=== PATIENT | male | born 1980 | race Caucasian/White ===

== ENCOUNTER 2016-08-19 19:28 | Emergency (ER) | payer OTHER ==
[2016-08-19 19:46] LABS: URINE APPEARANCE CLEAR; URINE BILIRUBIN NEGATIVE (NEGATIVE); URINE BLOOD TRACE-I (NEGATIVE); URINE COLOR YELLOW; URINE GLUCOSE (UA) NEGATIVE (NEGATIVE); URINE KETONE NEGATIVE (NEGATIVE); URINE LEUKOCYTE ESTERASE NEGATIVE (NEGATIVE); URINE NITRITE NEGATIVE (NEGATIVE); URINE PROTEIN NEGATIVE (NEGATIVE); URINE UROBILINOGEN 0.2 E.U./dL (0.20 - 1.00)
[2016-08-19 19:55] LABS: URINE AMORPHOUS SEDIMENT 1+; URINE EPITHELIAL CELLS 0 - 2 (FEW); URINE RBC 0 - 2 (NONE SEEN); URINE WBC 0 - 2 (0-2/hpf)
[2016-08-19] MEDS: ONDANSETRON HCL IV 4 MG/2 ML VIAL IV ONE (20:14)
[2016-08-19] MEDS: HYDROMORPHONE HCL 1 MG/ML CPJ IVP ONE ×2 (20:14→23:07)
[2016-08-19] MEDS: 0.9 % SODIUM CHLORIDE 1,000 ML BAG IV ONE (20:14)
[2016-08-19 20:20] LABS: BASO % 0.6 % (0-6); EOS % 1.7 % (0-6); GRAN % 52.3 % (47-80); HEMATOCRIT 45.4 % (42.0-52.0); HEMOGLOBIN 14.9 gm/dl (14.0-18.0); LYMPH % 36.3 % (16-45); MEAN CELL VOLUME 85.8 fl (81-97); MEAN CORPUSCULAR HEMOGLOBIN 28.2 pg (27-33); MEAN CORPUSCULAR HGB CONC 32.8 g/dl (32-36); MEAN PLATELET VOLUME 9.6 fl (7.4-10.4); MONO % 9.1 % (0-9); PLATELET COUNT 245 K/uL (130-400); RED BLOOD COUNT 5.29 M/uL (4.40-5.70); WHITE BLOOD COUNT W/O DIFF 7.1 K/uL (4.2-12.2)
[2016-08-19 20:32] LABS: ALBUMIN 5.2 gm/dL (3.5-5.0); ALKALINE PHOSPHATASE 109 U/L (38-126); ALT/SGPT 61 U/L (21-72); AMYLASE 53 U/L (30-110); ANION GAP 12.2 (7-16); AST/SGOT 30 U/L (17-59); BILIRUBIN,TOTAL 0.52 mg/dL (0.2-1.3); BLOOD UREA NITROGEN 15 mg/dL (9-20); CARBON DIOXIDE 27.8 mmol/L (22-30); CREATININE 1.1 mg/dL (0.66-1.25); EST GLOMERULAR FILTRATION RATE > 60 ml/min; GLUCOSE,RANDOM 94 mg/dL (70-110); LIPASE 58 U/L (23-300); TOTAL PROTEIN 7.4 gm/dL (6.3-8.2)
[2016-08-19 20:44] LABS: TROPONIN I < 0.012 ng/mL (0.00-0.034)
--- NOTE | 2016-08-19 21:08 | Emergency Department Record ---
History of Present Illness - General Chief Complaint: Abdominal Pain Stated Complaint: STOMACH PAIN Time Seen by Provider: 08/19/16 19:41 Source: Patient Mode of Arrival: Ambulatory Limitations: No limitations - History of Present Illness Initial Comments: pt has been having ruq and rlq ap for 2 days. no n/v/c/d. resting makes it better, movement makes it worse Complaint: Abdominal pain Onset/Timin -: Days(s) Location: Epigastric, RUQ, RLQ Migration to: RUQ, RLQ Quality: Aching, Dull, Sharp Consistency: Constant Improves With: Nothing Worsens With: Eating Associated Symptoms: Chills, Fever - Related Data Previous Rx's Medication Instructions Recorded Hydrocodone/Acetaminophen [[place] 1 tab PO Q6H PRN #7 tab 08/19/16 5mg/325mg] Allergies Allergy/AdvReac Type Severity Reaction Status Date / Time metoclopramide HCl AdvReac HYPERSENSIT Verified 08/19/16 19:55 [From [facility]] [address] Travel Screening - Travel/Exposure Within Last 30 Days Have you traveled within the last 30 days?: No - Travel/Exposure Within Last Year Have you traveled outside the [place] in the last year?: No - Additonal Travel Details Have you been exposed to anyone with a communicable illness?: No - Travel Symptoms Symptom Screening: None Review of Systems Reviewed: No additional complaints except as noted below Constitutional: Reports: As per HPI. Denies: Chills, Fever, Malaise, Night sweats, Weakness, Weight change Eyes: Reports: As per HPI. Denies: Eye discharge, Eye pain, Photophobia, Vision change ENT: Reports: As per HPI. Denies: Congestion, Dental pain, Ear pain, Epistaxis , Hearing loss, Throat pain Respiratory: Reports: As per HPI. Denies: Cough, Dyspnea, Hemoptysis, Stridor, Wheezes Cardiovascular: Reports: As per HPI. Denies: Arrhythmia, Chest pain, Dyspnea on exertion, Edema, Murmurs, Orthopnea, Palpitations, Paroxysmal nocturnal dyspnea, Rheumatic Fever, Syncope Endocrine: Reports: As per HPI. Denies: Fatigue, Heat or cold intolerance, Polydipsia, Polyuria Gastrointestinal: Reports: As per HPI. Denies: Abdominal pain, Constipation, Diarrhea, Hematemesis, Hematochezia, Melena, Nausea, Vomiting Genitourinary: Reports: As per HPI. Denies: Dysuria, Frequency, Hematuria, Incontinence, Retention, Testicular pain, Testicular mass, Urgency Musculoskeletal: Reports: As per HPI. Denies: Arthralgia, Back pain, Gout, Joint swelling, Myalgia, Neck pain Skin: Reports: As per HPI. Denies: Bruising, Change in color, Change in hair/ nails, Lesions, Pruritus, Rash Neurological: Reports: As per HPI. Denies: Abnormal gait, Confusion, Headache, Numbness, Paresthesias, Seizure, Tingling, Tremors, Vertigo, Weakness Psychiatric: Reports: As per HPI. Denies: Anxiety, Auditory hallucinations, Depression, Homicidal thoughts, Suicidal thoughts, Visual hallucinations Hematological/Lymphatic: Reports: As per HPI. Denies: Anemia, Blood Clots, Easy bleeding, Easy bruising, Swollen glands Past Medical History - SOCIAL HISTORY Smoking Status: Never smoker Alcohol Use: Occassional Drug Use: None - RESPIRATORY Hx Respiratory Disorders: No - CARDIOVASCULAR Hx Cardio Disorders: No - NEURO Hx Neuro Disorders: No - GI Hx GI Disorders: No - Hx Genitourinary Disorders: No - ENDOCRINE Hx Endocrine Disorders: No - MUSCULOSKELETAL Hx Musculoskeletal Disorders: No - PSYCH Hx Psych Problems: No - HEMATOLOGY/ONCOLOGY Hx Hematology/Oncology Disorders: No Family Medical History Any Significant Family History?: No Hx Cancer: Mother, Brother/Sister Physical Exam - General General Appearance: Alert, Oriented x3, Cooperative, Mild distress - Head Head exam: Normal inspection - Eye Eye exam: Normal appearance, PERRL, EOMI Pupils: Normal accommodation - ENT ENT exam: Normal exam, Mucous membranes moist, Normal external ear exam, Normal orophraynx Ear exam: Normal external inspection. negative: External canal tenderness Nasal Exam: Normal inspection. negative: Discharge, Sinus tenderness Mouth exam: Normal external inspection, Tongue normal Teeth exam: Normal inspection. negative: Dental caries Throat exam: Normal inspection. negative: Tonsillar erythema, Tonsillar exudate - Neck Neck exam: Normal inspection, Full ROM. negative: Tenderness - Respiratory Respiratory exam: Normal lung sounds bilaterally. negative: Respiratory distress - Cardiovascular Cardiovascular Exam: Regular rate, Normal rhythm, Normal heart sounds - GI/Abdominal GI/Abdominal exam: Soft, Normal bowel sounds, Tenderness (rlq) - Rectal Rectal exam: Deferred - exam: Deferred - Extremities Extremities exam: Normal inspection, Full ROM, Normal capillary refill. negative: Tenderness - Back Back exam: Reports: Normal inspection, Full ROM. Denies: Muscle spasm, Rash noted, Tenderness - Neurological Neurological exam: Alert, CN II-XII intact, Normal gait, Oriented X3 - Psychiatric Psychiatric exam: Normal affect, Normal mood - Skin Skin exam: Dry, Intact, Normal color, Warm Course Vital Signs 08/19/16 19:29 Temperature 97.7 F Pulse Rate 62 Respiratory 16 Rate Blood Pressure 132/74 Pulse Ox 99 - Reevaluation(s) Reevaluation #1: 08/19/16 23:05 pt feels better Medical Decision Making - Management Options MDM Management: Additional Work-up Planned (e.g. ADM/Transfer/OP Study) - Data Complexity MDM Data: Labs Ordered and/or Reviewed, X-Ray Ordered and/or Reviewed - Lab Data Result diagrams: 08/19/16 19:18 08/19/16 19:18 Lab Results 08/19/16 08/19/16 08/19/16 Range/Units 19:18 19:18 19:35 WBC 7.1 (4.2-12.2) K/uL RBC 5.29 (4.40-5.70) M/uL Hgb 14.9 (14.0-18.0) gm/dl Hct 45.4 (42.0-52.0) % MCV 85.8 (81-97) fl MCH 28.2 (27-33) pg MCHC 32.8 (32-36) g/dl RDW 14.0 (11.5-14.5) % Plt Count 245 (130-400) K/uL MPV 9.6 (7.4-10.4) fl Gran % 52.3 (47-80) % Lymphocytes % 36.3 (16-45) % Monocytes % 9.1 H (0-9) % Eosinophils % 1.7 (0-6) % Basophils % 0.6 (0-6) % Sodium 141 (136-145) mmol/L Potassium 4.1 (3.5-5.1) mmol/L Chloride 101 (98-107) mmol/L Carbon Dioxide 27.8 (22-30) mmol/L Anion Gap 12.2 (7-16) BUN 15 (9-20) mg/dL Creatinine 1.1 (0.66-1.25) mg/dL Estimated GFR > 60 ml/min Random Glucose 94 (70-110) mg/dL Calcium 9.4 (8.5-10.1) mg/dL Total Bilirubin 0.52 (0.2-1.3) mg/dL Direct Bilirubin 0.0 (0-0.3) mg/dL AST 30 (17-59) U/L ALT 61 (21-72) U/L Alkaline Phosphatase 109 (38-126) U/L Troponin I < 0.012 (0.00-0.034) ng/mL Total Protein 7.4 (6.3-8.2) gm/dL Albumin 5.2 H (3.5-5.0) gm/dL Amylase 53 (30-110) U/L Lipase 58 (23-300) U/L Urine Color Yellow Urine Appearance Clear Urine pH 6.5 (5.0-8.0) Ur Specific [place] 1.015 (1.002-1.030) Urine Protein Negative (NEGATIVE) Urine Glucose (UA) Negative (NEGATIVE) Urine Ketones Negative (NEGATIVE) Urine Blood Trace-i (NEGATIVE) Urine Nitrite Negative (NEGATIVE) Urine Bilirubin Negative (NEGATIVE) Urine Urobilinogen 0.2 (0.20 - 1.00) E.U./dL Ur Leukocyte Esterase Negative (NEGATIVE) Urine RBC 0 - 2 (NONE SEEN) Urine WBC 0 - 2 (0-2/hpf) Ur Epithelial Cells 0 - 2 (FEW) Amorphous Sediment 1+ - Radiology Data Radiology results: Report reviewed, Image reviewed Disposition Disposition: Discharge Clinical Impression: Abdominal pain Qualifiers: Abdominal location: right upper quadrant Qualified Code(s): R10.11 - Right upper quadrant pain Disposition: Home, Self-Care Condition: (1) Good Instructions: Abdominal Pain (ED) Additional Instructions: follow up with family doctor. return sooner if worse. have ultraspound of gallbladder if symptoms continue. recheck in 1 day if right lower quadrant pain continues. Prescriptions: Hydrocodone/Acetaminophen [[place] 5mg/325mg] 1 tab PO Q6H PRN #7 tab PRN Reason: Pain - General Forms: Patient Portal Access
[2016-08-19] MEDS: 0.9 % SODIUM CHLORIDE 1000ML 1,000 ML IV ONE (21:10)
[2016-08-19] MEDS: KETOROLAC 30 MG/ML VIAL IVP ONE (21:39)
--- NOTE | 2016-08-24 14:22 | CT SCAN REPORT ---
EXAM: CT SCAN OF THE ABDOMEN AND PELVIS HISTORY: PATIENT HAS RIGHT SIDED ABDOMINAL PAIN. TECHNIQUE: Serial axial CT scan of the abdomen and pelvis was performed at 3.75 mm intervals from the dome of the diaphragm down to the pubic symphysis following the intravenous administration of 100 ml of Omnipaque 300. Oral contrast was also administered. No comparison studies are available. FINDINGS: The lung windows of the lung bases demonstrate no CT evidence of a focal infiltrate or pleural effusion. The visualized heart size and contour is within normal limits. The liver, spleen, pancreas, bilateral adrenal glands, and gallbladder appear unremarkable. There is no CT evidence of hydronephrosis or hydroureter. No renal or ureteral calculi are noted. The contour, caliber and flow within the abdominal aorta is within normal limits. There is no CT evidence of retroperitoneal, pelvic, or inguinal lymphadenopathy. The bowel gas pattern is nonspecific and nonobstructive. There is no CT evidence of free intraperitoneal fluid or free intraperitoneal air. The appendix is clearly visualized and there is no CT evidence of appendicitis. The urinary bladder and prostate appear unremarkable. Bone windows demonstrate no CT evidence of a fracture or dislocation of the visualized osseous structures in the abdomen and pelvis. Lucent lesion within the left aspect of the T12 vertebral body may represent enchondroma. If there is further clinical concern then a bone scan can be obtained for further evaluation. IMPRESSION: NO CT EVIDENCE OF AN ACUTE INTRAABDOMINAL PROCESS. JOB NUMBER: [id number] MTDD
== END 2016-08-19 23:26 | disposition home or self-care (01) ==
LOC: ER 19:28
DX: R10.11 Right upper quadrant pain (principal)
CPT/HCPCS: 99284 ×2; 96376; 96374; 96375; 82150; 83690; 85025; 80076; 84484; 80048; 81001; 74177; Q9967; J1885; J2405; J1170; J7030

== ENCOUNTER 2019-03-29 15:14 | Observation (INO) | payer BC, OTHER ==
--- NOTE | 2019-03-29 15:32 | Emergency Department Record ---
History of Present Illness - General Chief Complaint: Chest Pain Stated Complaint: CHEST PAIN Time Seen by Provider: 03/29/19 15:18 Source: Patient Mode of Arrival: Ambulatory Limitations: No limitations - History of Present Illness Initial Comments: The patient is here due to waking up this AM with CP. The onset was 7-8 hours ago and he describes it as a retrosternal chest burning that feels like heartburn. He has had some dizziness and nausea with it but no sweating, PRESLEY, or SOB. The patient states eating and drinking do not affect the pain and he denies any worsening with exertion. The patient denies any hx of CP with exertion and he has no cardiac risk factors. MD Complaint: Chest pain Onset/Timin -: Hour(s) Onset: During rest Pain Location: Substernal Pain Radiation: None Severity: Mild Severity scale (1-10): 4 Quality: Other Consistency: Constant Improves With: Nothing Worsens With: Nothing Treatments Prior to Arrival: None - Related Data Home Medications Medication Instructions Recorded Confirmed Last Taken No Home Med [NO HOME MEDS] 03/29/19 03/29/19 Unknown Allergies Allergy/AdvReac Type Severity Reaction Status Date / Time metoclopramide HCl AdvReac HYPERSENSIT Verified 03/29/19 15:22 [From [employer]] [email or web address] Travel Screening - Travel/Exposure Within Last 30 Days Have you traveled within the last 30 days?: No Review of Systems Constitutional: Denies: Chills, Fever Eyes: Denies: Eye discharge ENT: Denies: Congestion Respiratory: Denies: Cough, Dyspnea Cardiovascular: Reports: Chest pain Endocrine: Denies: Fatigue Gastrointestinal: Reports: Nausea Genitourinary: Denies: Dysuria Musculoskeletal: Denies: Arthralgia Skin: Denies: Bruising Past Medical History - SOCIAL HISTORY Smoking Status: Never smoker Alcohol Use: None Drug Use: None - RESPIRATORY Hx Respiratory Disorders: No - CARDIOVASCULAR Hx Cardio Disorders: No - NEURO Hx Neuro Disorders: No - GI Hx GI Disorders: No - Hx Genitourinary Disorders: No - ENDOCRINE Hx Endocrine Disorders: No - MUSCULOSKELETAL Hx Musculoskeletal Disorders: No - PSYCH Hx Psych Problems: No - HEMATOLOGY/ONCOLOGY Hx Hematology/Oncology Disorders: No Family Medical History Any Significant Family History?: Yes Hx Cancer: Mother, Brother/Sister Physical Exam - General General Appearance: Alert, Oriented x3, Cooperative, No acute distress - Head Head exam: Atraumatic, Normocephalic, Normal inspection - Eye Eye exam: Normal appearance, PERRL - ENT Throat exam: Normal inspection. negative: Tonsillar erythema, Tonsillar exudate - Neck Neck exam: Normal inspection, Full ROM. negative: Tenderness - Respiratory Respiratory exam: Normal lung sounds bilaterally. negative: Chest wall tenderness, Rales, Respiratory distress, Rhonchi - Cardiovascular Cardiovascular Exam: Regular rate, Normal rhythm, Normal heart sounds. negative: Diastolic murmur, Systolic murmur - GI/Abdominal GI/Abdominal exam: Soft, Normal bowel sounds. negative: Tenderness - Extremities Extremities exam: Normal inspection, Full ROM, Normal capillary refill. negative: Calf tenderness, Pedal edema, Tenderness - Neurological Neurological exam: Alert, Normal gait. negative: Abnormal gait, Motor sensory deficit Course Vital Signs 03/29/19 15:19 Temperature 98.5 F Pulse Rate 90 Respiratory 20 Rate Blood Pressure 137/78 Pulse Ox 99 - Reevaluation(s) Reevaluation #1: The patient is doing a lot better at this time. His Chest burning has completely resolved and he has no nausea, vomiting, or any trouble breathing. I explained to him that we will recheck a Trop at 18:00 and treat accordingly. He did vomit after the GI meds and feels the vomiting is what helped him the most. 03/29/19 17:39 Reevaluation #2: The patient now has some mild upper abdominal pain and states he feels like he did prior to getting his GB removed. On exam he does have mild epigastric tenderness. The patient denies any chest discomfort or burning or any PRESLEY or SOB. 2nd EKG 18:04 NSR at 78, neg ST-T changes. Normal EKG. Possible borderline short IA interval. 03/29/19 18:15 Reevaluation #3: The patient now states his nausea and dizziness is worsening with standing. He denies any pain or discomfort or chest burning and he has normal vitals. The patient's 2nd EKG is normal along with his 2nd set of cardiac enzymes. Due to the extent of his nausea and dizziness I do feel the need to observe the patient in the hospital overnight. We will keep him NPO and treat with H2 blockers and IVF. I did discuss the case with Rylee ([employer]) and she will admit the patient overnight for Dr. Pal. We will recheck cardiac enzymes and lab work in the AM. 03/29/19 19:14 Medical Decision Making - Data Complexity MDM Data: Labs Ordered and/or Reviewed, X-Ray Ordered and/or Reviewed, EKG Ordered and/or Reviewed - Lab Data Result diagrams: 03/29/19 15:40 03/29/19 15:40 - EKG Data -: EKG Interpreted by Me EKG: No Acute Changes, Normal EKG - Radiology Data Radiology results: Report reviewed (CXR: neg. ) Disposition Disposition: Admit Clinical Impression: Chest pain, atypical Disposition: Still a Patient at [facility] Decision to Admit: Admit from ER Decision to Admit Date: 03/29/19 Decision to Admit Time: 19:21 Accepting Physician: Demarco Time Discussed w/Accepting Physician: 19:21 Condition: (2) Stable Instructions: Chest Pain (ED) Forms: Patient Portal Access Time of Disposition: 19:21 Quality - Quality Measures Quality Measures: N/A - Blood Pressure Screening View Details: Yes Does Patient Have Any of the Following: No Blood Pressure Classification: Pre-Hypertensive BP Reading Systolic Measurement: 137 Diastolic Measurement: 78 Screening for High Blood Pressure: < Pre-Hypertensive BP, F/U Documented > [[id number]] Pre-Hypertensive Follow-up Interventions: Referral to alternative/primary care provider.
[2019-03-29] MEDS ORDERED: MAGNESIUM HYDROXIDE/AL HYDROX 30 ML, LIDOCAINE VISC 2% 15ML 15 ML PO ONE ×2 (15:33)
[2019-03-29] MEDS ORDERED: ONDANSETRON HCL IV 4 MG/2 ML VIAL IVP ONE (15:41)
[2019-03-29 15:52] LABS: ABSOLUTE NEUTROPHIL COUNT 6.36; BASO % 0.1 % (0-6); EOS % 0.9 % (0-6); HEMATOCRIT 46.4 % (42.0-52.0); HEMOGLOBIN 15.6 gm/dl (14.0-18.0); LYMPH % 6.7 % (16-45); MEAN CELL VOLUME 83.8 fl (81-97); MEAN CORPUSCULAR HEMOGLOBIN 28.2 pg (27-33); MEAN CORPUSCULAR HGB CONC 33.6 g/dl (32-36); MEAN PLATELET VOLUME 9.6 fl (7.4-10.4); PLATELET COUNT 232 K/uL (130-400); RED BLOOD COUNT 5.54 M/uL (4.40-5.70); WHITE BLOOD COUNT W/O DIFF 7.5 K/uL (4.2-12.2)
[2019-03-29] MEDS ORDERED: SUCRALFATE 1 G/10 ML UD PO ONE (15:56)
[2019-03-29 15:57] LABS: BLOOD UREA NITROGEN 21 mg/dL (6-20); CREATININE 0.8 mg/dL (0.7-1.2); EST GLOMERULAR FILTRATION RATE > 60 mL/min
[2019-03-29 15:58] LABS: TOTAL PROTEIN 7.1 g/dL (6.6-8.7)
[2019-03-29 15:59] LABS: GLUCOSE,RANDOM 109 mg/dL (74-109)
[2019-03-29 16:02] LABS: ALB/GLOB RATIO 1.8 (1.1-1.8); ALBUMIN 4.6 g/dL (4.0-5.0); ALKALINE PHOSPHATASE 120 U/L (40-129); ALT/SGPT 28 U/L (<41); AST/SGOT 23 U/L (10.0-50.0); CREATINE PHOSPHOKINASE 429 U/L (39-308)
[2019-03-29] MEDS ORDERED: DIPHENHYDRAMINE HCL 50 MG/ML VIAL IVP ONE (16:40)
[2019-03-29] MEDS ORDERED: PROMETHAZINE HCL 12.5 MG in 0.9 % SODIUM CHLORIDE 100ML 100 ML IVPB ONE (16:40)
[2019-03-29] MEDS ORDERED: METOCLOPRAMIDE HCL 10 MG/2 ML VIAL IVP ONE (16:40)
[2019-03-29] MEDS ORDERED: PANTOPRAZOLE SODIUM IV 40 MG VIAL IVP ONE (19:14)
[2019-03-29] MEDS ORDERED: ONDANSETRON HCL IV 4 MG/2 ML VIAL IVP PRN (20:04)
[2019-03-29] MEDS ORDERED: 0.9 % SODIUM CHLORIDE 1000ML 1,000 ML IV PRN (20:04)
[2019-03-29] MEDS ORDERED: PROMETHAZINE HCL 12.5 MG in 0.9 % SODIUM CHLORIDE 100ML 100 ML IVPB PRN (20:04)
[2019-03-30 07:02] LABS: ABSOLUTE NEUTROPHIL COUNT 4.26; HEMATOCRIT 43.6 % (42.0-52.0); HEMOGLOBIN 14.4 gm/dl (14.0-18.0); MEAN CELL VOLUME 84.7 fl (81-97); MEAN PLATELET VOLUME 9.6 fl (7.4-10.4); PLATELET COUNT 210 K/uL (130-400); RED BLOOD COUNT 5.15 M/uL (4.40-5.70); RED CELL DISTRIBUTION WIDTH 14.2 % (11.5-14.5); WHITE BLOOD COUNT W/O DIFF 5.1 K/uL (4.2-12.2)
[2019-03-30 07:21] LABS: ALB/GLOB RATIO 1.8 (1.1-1.8); ALBUMIN 3.7 g/dL (4.0-5.0); ALKALINE PHOSPHATASE 91 U/L (40-129); ALT/SGPT 22 U/L (<41); AST/SGOT 17 U/L (10.0-50.0); BLOOD UREA NITROGEN 17 mg/dL (6-20); CREATININE 0.9 mg/dL (0.7-1.2); EST GLOMERULAR FILTRATION RATE > 60 mL/min; GLUCOSE,RANDOM 116 mg/dL (74-109); TOTAL PROTEIN 5.8 g/dL (6.6-8.7)
--- NOTE | 2019-03-30 07:26 | RADIOLOGY REPORT ---
EXAM: CHEST, TWO VIEWS HISTORY: LOWER CHEST PAIN. TECHNIQUE: PA and lateral views of the chest were obtained. Comparison: None. FINDINGS: The heart size is normal. No definite acute infiltrate seen. No pleural effusion or pneumothorax evident. IMPRESSION: THE CHEST APPEARS NEGATIVE. JOB NUMBER: [id number] MTDD
--- NOTE | 2019-03-30 08:32 | History & Physical ---
History of Present Illness - Date of Service Date of Service for History & Physical: 03/31/19 - History of Present Illness Admitting Diagnosis: 1. Atypical Chest pain with Nausea and Dizziness. History of Present Illness: Kyaw Lopez is a 38 y.o. M who presented to the [facility] ED on 03/29/19 with c/o CP that felt like nausea and dizziness and nausea that started 7-8 hours ago. He described the pain as heartburn. He denied sweating, PRESLEY or SOB. Pain didn't worsen with eating or drinking or with exertion. He denied any hx of CP or significant SOB with exertion. No significant PMHx. No significant FMHx. Has had his Gallbladder removed. Denies Alcohol, Tobacco or Drug use. PCP: Dr. Camilo Yusuf ED Course -Vitals: T 98.5, HR 74, BP 117/72, RR 20, SpO2 99% on RA -CXR: Negative -EKG: NSR, negative ST changes -Troponins Negative x 2 -CBC and CMP unremarkable Pt vomited after taking GI meds while in the ED which made him feel better. 03/28/19 1030 Vitals: T 99.3, HR 98, BP 129/73, RR 20, SpO2 96% on RA Pt is lying in bed. Mother is at bedside. Does not appear in any distress. A&Ox3. Reports that he is feeling better today and believes that he may have just picked up "a stomach bug". 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 Ordered D-dimer and Mag level this a.m. which were both normal. Troponins negative x 4. HEART score 0. Discussed d/c with pt and recommended f/u with PCP should symptoms continue and to return to ED if worsen. Travel Screening - Travel/Exposure Within Last 30 Days Have you traveled within the last 30 days?: Yes Location Detail:: [place] - Travel/Exposure Within Last Year Have you traveled outside the [place] in the last year?: No - Additonal Travel Details Have you been exposed to anyone with a communicable illness?: Yes Exposure Details:: At work - Travel Symptoms Symptom Screening: None Review of Systems Reviewed: No additional complaints except as noted below Constitutional: Denies: Chills, Fever Eyes: Denies: Eye discharge ENT: Denies: Congestion Respiratory: Denies: Cough, Dyspnea Cardiovascular: Denies: Chest pain Endocrine: Denies: Fatigue Gastrointestinal: Reports: Nausea. Denies: Constipation, Diarrhea Genitourinary: Denies: Dysuria Musculoskeletal: Denies: Arthralgia Skin: Denies: Bruising Neurological: Denies: Headache, Seizure Past Medical History - SOCIAL HISTORY Smoking Status: Never smoker Alcohol Use: Rare Drug Use: None - RESPIRATORY Hx Respiratory Disorders: No - CARDIOVASCULAR Hx Cardio Disorders: No - NEURO Hx Neuro Disorders: No - GI Hx GI Disorders: No - Hx Genitourinary Disorders: No - ENDOCRINE Hx Endocrine Disorders: No - MUSCULOSKELETAL Hx Musculoskeletal Disorders: No - PSYCH Hx Psych Problems: No - HEMATOLOGY/ONCOLOGY Hx Hematology/Oncology Disorders: No Family Medical History Any Significant Family History?: Yes Hx Cancer: Mother, Brother/Sister H&P Meds/Allergies - Allergies Allergies: Allergies Allergy/AdvReac Type Severity Reaction Status Date / Time metoclopramide HCl AdvReac HYPERSENSIT Verified 03/29/19 15:22 [From [facility]] [facility] - Home Medications Previous Rx's Medication Instructions Recorded Ondansetron [Zofran Odt] 4 mg PO Q8H #12 tab.inez 03/30/19 Pantoprazole Sodium [Protonix] 40 mg PO DAILY #12 tablet. 03/30/19 - Active Medications Active Medications: Current Medications Sodium Chloride () 1,000 mls @ 100 mls/hr IV .Q10H PRN PRN Reason: LARGE VOLUME IV Promethazine HCl 12.5 mg/ (Sodium Chloride) 100.5 mls @ 200 mls/hr IVPB Q6H PRN PRN Reason: NAUSEA Ondansetron HCl (Zofran) 4 mg IVP Q4H PRN PRN Reason: NAUSEA Pantoprazole Sodium (Protonix Iv) 40 mg IVP Q24H DOMINIQUE Physical Exam - Vital Signs Vital Signs: Vital Signs - Last 24 Hrs Temp Pulse Pulse Resp BP BP Pulse Ox 03/30/19 08:00 99.3 F 98 H 16 129/73 96 03/30/19 02:04 101 H 16 109/69 97 03/29/19 22:04 98.3 F 86 16 110/66 95 03/29/19 21:00 16 03/29/19 20:00 98.0 F 100 H 16 124/74 97 03/29/19 19:12 83 16 118/78 96 03/29/19 16:57 74 20 117/72 99 03/29/19 15:19 98.5 F 90 20 137/78 99 - General General Appearance: Alert, Oriented x3, Cooperative, No acute distress Limitations: No limitations - Head Head exam: Atraumatic, Normocephalic, Normal inspection - Eye Eye exam: Normal appearance, PERRL - ENT Throat exam: Normal inspection. negative: Tonsillar erythema, Tonsillar exudate - Neck Neck exam: Normal inspection, Full ROM. negative: Tenderness - Respiratory Respiratory exam: Normal lung sounds bilaterally. negative: Chest wall tenderness, Rales, Respiratory distress, Rhonchi - Cardiovascular Cardiovascular Exam: Regular rate, Normal rhythm, Normal heart sounds. negative: Diastolic murmur, Systolic murmur - GI/Abdominal GI/Abdominal exam: Soft, Normal bowel sounds. negative: Organomegaly, Rebound, Tenderness - Extremities Extremities exam: Normal inspection, Full ROM, Normal capillary refill. negative: Calf tenderness, Pedal edema, Tenderness - Neurological Neurological exam: Alert, Normal gait. negative: Abnormal gait, Motor sensory deficit - Psychiatric Psychiatric exam: Normal affect, Normal mood - Skin Skin exam: Dry, Intact, Warm Results - Labs Result Diagrams: 03/30/19 06:44 03/30/19 06:44 Labs Last 24 Hours: Laboratory Results - last 24 hr 03/29/19 03/29/19 03/29/19 15:40 15:40 17:55 WBC 7.5 RBC 5.54 Hgb 15.6 Hct 46.4 MCV 83.8 MCH 28.2 MCHC 33.6 RDW 14.0 Plt Count 232 MPV 9.6 Neutrophils % 87.0 H Band Neutrophils % 5.0 Lymphocytes % 6.7 L Monocytes % 7.0 Eosinophils % 0.9 Basophils % 0.1 Absolute Neutrophils 6.36 Lymphocytes 5.0 L Monocytes 3.0 Basophils 0.0 Eosinophil Count 0.0 Sodium 139 Potassium 4.4 Chloride 106 Carbon Dioxide 23.0 Anion Gap 10.0 BUN 21 H Creatinine 0.8 Estimated GFR > 60 Random Glucose 109 Calcium 9.2 Total Bilirubin 0.90 AST 23 ALT 28 Alkaline Phosphatase 120 Creatine Kinase 429 H CK-MB (CK-2) 4.0 Troponin T < 0.010 < 0.010 Total Protein 7.1 Albumin 4.6 Globulin 2.5 Albumin/Globulin Ratio 1.8 Lipase 03/29/19 03/29/19 03/30/19 17:55 22:50 06:44 WBC 5.1 RBC 5.15 Hgb 14.4 Hct 43.6 MCV 84.7 MCH 28.0 MCHC 33.0 RDW 14.2 Plt Count 210 MPV 9.6 Neutrophils % 79.0 Band Neutrophils % 2.0 Lymphocytes % Monocytes % Eosinophils % Not Reportable Basophils % Not Reportable Absolute Neutrophils 4.26 Lymphocytes 11.0 L Monocytes 8.0 Basophils Eosinophil Count Sodium Potassium Chloride Carbon Dioxide Anion Gap BUN Creatinine Estimated GFR Random Glucose Calcium Total Bilirubin AST ALT Alkaline Phosphatase Creatine Kinase CK-MB (CK-2) Troponin T < 0.010 Total Protein Albumin Globulin Albumin/Globulin Ratio Lipase 17 03/30/19 03/30/19 06:44 06:44 WBC RBC Hgb Hct MCV MCH MCHC RDW Plt Count MPV Neutrophils % Band Neutrophils % Lymphocytes % Monocytes % Eosinophils % Basophils % Absolute Neutrophils Lymphocytes Monocytes Basophils Eosinophil Count Sodium 140 Potassium 3.9 Chloride 108 H Carbon Dioxide 22.0 Anion Gap 10.0 BUN 17 Creatinine 0.9 Estimated GFR > 60 Random Glucose 116 H Calcium 8.2 L Total Bilirubin 0.60 AST 17 ALT 22 Alkaline Phosphatase 91 Creatine Kinase CK-MB (CK-2) Troponin T < 0.010 Total Protein 5.8 L Albumin 3.7 L Globulin 2.1 Albumin/Globulin Ratio 1.8 Lipase VTE H&P Assessment - Risk for VTE Risk for VTE: No Risk Level: Low Risk Assessment Date: 03/28/19 Risk Assessment Time: 10:30 VTE Orders Placed or Will Be Placed: No VTE Reason for No Prophylaxis: Not Indicated Plan - Detailed Diagnosis and Plan (1) Chest pain, atypical Status: Acute Base Code: R07.89 - OTHER CHEST PAIN Comment: 03/28/19 -Mid sternal/epigastric pain that pt described as heartburn -EKG: NSR -CXR: Negative -D-dimer: Normal -CBC/CMP unremarkable -Troponins negative x 4 -IV NS @ 100 ml/hr -Protonix 40mg daily -Zofran 4mg q. 4 hours PRN (2) Dizziness Status: Acute Base Code: R42 - DIZZINESS AND GIDDINESS Comment: 03/28/19 -Improved -Ddx: Viral illness vs. Vertigo vs. Cardiac event? (3) Nausea Status: Acute Base Code: R11.0 - NAUSEA Comment: 03/28/19 -Improved -Continue Zofran 4mg ODT PRN (4) Full code status Status: Acute Base Code: Z78.9 - OTHER SPECIFIED HEALTH STATUS Comment: 03/28/19 -Full code this admission (5) DVT prophylaxis Status: Acute Base Code: Z29.9 - ENCOUNTER FOR PROPHYLACTIC MEASURES, UNSPECIFIED Comment: 03/28/19 -Less than 24 hour OBV admission, no anticoagulation ordered
--- NOTE | 2019-03-30 11:29 | Discharge Summary ---
Providers Discharge Summary Date: 03/30/19 Date of admission: 03/29/19 19:56 Attending physician: YADI MENDEZ Primary care physician: PIERRE SANDOVAL M.D. Physical Exam - Vital Signs Vital Signs: Vital Signs - Last 24 Hrs Temp Pulse Pulse Resp BP BP Pulse Ox 03/30/19 09:00 81 16 03/30/19 08:00 99.3 F 98 H 16 129/73 96 03/30/19 02:04 101 H 16 109/69 97 03/29/19 22:04 98.3 F 86 16 110/66 95 03/29/19 21:00 16 03/29/19 20:00 98.0 F 100 H 16 124/74 97 03/29/19 19:12 83 16 118/78 96 03/29/19 16:57 74 20 117/72 99 03/29/19 15:19 98.5 F 90 20 137/78 99 - General General Appearance: Alert, Oriented x3, Cooperative, No acute distress Limitations: No limitations - Head Head exam: Atraumatic, Normocephalic, Normal inspection - Eye Eye exam: Normal appearance, PERRL - ENT Throat exam: Normal inspection. negative: Tonsillar erythema, Tonsillar exudate - Neck Neck exam: Normal inspection, Full ROM. negative: Tenderness - Respiratory Respiratory exam: Normal lung sounds bilaterally. negative: Chest wall tenderness, Rales, Respiratory distress, Rhonchi - Cardiovascular Cardiovascular Exam: Regular rate, Normal rhythm, Normal heart sounds. negative: Diastolic murmur, Systolic murmur - GI/Abdominal GI/Abdominal exam: Soft, Normal bowel sounds. negative: Organomegaly, Rebound, Rigid, Tenderness - Extremities Extremities exam: Normal inspection, Full ROM, Normal capillary refill. negative: Calf tenderness, Pedal edema, Tenderness - Neurological Neurological exam: Alert, Normal gait. negative: Abnormal gait, Motor sensory deficit Hospitalization - Hospitalization Admission Diagnosis: 1. Atypical Chest pain with Nausea and Dizziness. - Problem List/Discharge Diagnosis (1) Chest pain, atypical Status: Acute Base Code: R07.89 - OTHER CHEST PAIN Comment: 03/28/19 -Resolved -Mid sternal/epigastric pain that pt described as heartburn -EKG: NSR -CXR: Negative -D-dimer: Normal -CBC/CMP unremarkable -Troponins negative x 4 -IV NS @ 100 ml/hr -Protonix 40mg daily -Zofran 4mg q. 4 hours PRN (2) Dizziness Status: Acute Base Code: R42 - DIZZINESS AND GIDDINESS Comment: 03/28/19 -Improved -Ddx: Viral illness vs. Vertigo vs. Cardiac event? (3) Full code status Status: Acute Base Code: Z78.9 - OTHER SPECIFIED HEALTH STATUS Comment: 03/28/19 -Full code this admission (4) Nausea Status: Acute Base Code: R11.0 - NAUSEA Comment: 03/28/19 -Improved -Continue Zofran 4mg ODT PRN (5) DVT prophylaxis Status: Acute Base Code: Z29.9 - ENCOUNTER FOR PROPHYLACTIC MEASURES, UNSPECIFIED Comment: 03/28/19 -Less than 24 hour OBV admission, no anticoagulation ordered - Hospitalization Course Disposition: Home, Self-Care Hospital Course: Kyaw Lopez is a 38 y.o. M who presented to the [facility] ED on 03/29/19 with c/o CP that felt like nausea and dizziness and nausea that started 7-8 hours ago. He described the pain as heartburn. He denied sweating, PRESLEY or SOB. Pain didn't worsen with eating or drinking or with exertion. He denied any hx of CP or significant SOB with exertion. No significant PMHx. No significant FMHx. Has had his Gallbladder removed. Denies Alcohol, Tobacco or Drug use. PCP: Dr. Pierre Sandoval ED Course -Vitals: T 98.5, HR 74, BP 117/72, RR 20, SpO2 99% on RA -CXR: Negative -EKG: NSR, negative ST changes -Troponins Negative x 2 -CBC and CMP unremarkable Pt vomited after taking GI meds while in the ED which made him feel better. 03/28/19 1030 Vitals: T 99.3, HR 98, BP 129/73, RR 20, SpO2 96% on RA Pt is lying in bed. Mother is at bedside. Does not appear in any distress. A&Ox3. Reports that he is feeling better today and believes that he may have just picked up "a stomach bug". 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 Ordered D-dimer and Mag level this a.m. which were both normal. Troponins negative x 4. HEART score 0. Discussed d/c with pt and recommended f/u with PCP should symptoms continue and to return to ED if worsen. He has no cardiac risk factors. Procedures: Imaging and X-Rays 03/29/19 18:16 CHEST 2 VIEWS [RAD] Stat Cardiology Procedures 03/29/19 15:32 [employer] NOW EKG NOW 03/29/19 18:05 EKG NOW 03/29/19 20:04 [employer] .Continuous EKG QDX2@0600 Abnormal Labs: Abnormal Lab Results 03/29/19 03/29/19 03/30/19 Range/Units 15:40 15:40 06:44 Neutrophils % 87.0 H (47-80) % Lymphocytes % 6.7 L (16-45) % Lymphocytes 5.0 L 11.0 L (16-45) % Chloride (98-107) mmol/L BUN 21 H (6-20) mg/dL Random Glucose (74-109) mg/dL Calcium (8.6-10.0) mg/dL Creatine Kinase 429 H (39-308) U/L Total Protein (6.6-8.7) g/dL Albumin (4.0-5.0) g/dL 03/30/19 Range/Units 06:44 Neutrophils % (47-80) % Lymphocytes % (16-45) % Lymphocytes (16-45) % Chloride 108 H (98-107) mmol/L BUN (6-20) mg/dL Random Glucose 116 H (74-109) mg/dL Calcium 8.2 L (8.6-10.0) mg/dL Creatine Kinase (39-308) U/L Total Protein 5.8 L (6.6-8.7) g/dL Albumin 3.7 L (4.0-5.0) g/dL Condition at Discharge: (2) Stable Discharge Medications - Discharge Medications Prescriptions: Pantoprazole Sodium [Protonix] 40 mg PO DAILY #12 tablet. Ondansetron [Zofran Odt] 4 mg PO Q8H #12 tab.rapdis Home Medications: Ambulatory Orders Ondansetron [Zofran Odt] 4 mg PO Q8H #12 tab.rapdis 03/30/19 [Last Taken Unknown] Pantoprazole Sodium [Protonix] 40 mg PO DAILY #12 tablet.dr 03/30/19 [Last Taken Unknown] Discharge Plan - Discharge Instructions Diet at Discharge: Advance to Usual Diet Instructions: Chest Pain (ED), Nausea and Vomiting in (GEN), Dizziness (GEN) Quality Measures - Quality Measures Quality Measures: Documentation of Current Medications in Medical Record, Screening for High Blood Pressure and F/U Documented - Current Medications Quality Measure: Measure #130: Documentation of Current Medications Documentation of Current Medications: <Current Medications Documented/Reviewed> [[id number]] - Blood Pressure Screening Quality Measure: Screening for High Blood Pressure and Follow-Up Documented Does Patient Have Any of the Following: No Blood Pressure Classification: Pre-Hypertensive BP Reading Systolic Measurement: 137 Diastolic Measurement: 78 Screening for High Blood Pressure: < Pre-Hypertensive BP, F/U Documented > [[id number]] Pre-Hypertensive Follow-up Interventions: Referral to alternative/primary care provider. - Elder Abuse Suspicion Index EASI Reference Information: Sheri HERNANDES, Won C, Ben D, Severiano Hernandez.Development and validation of a tool to assist physicians identification of elder abuse: The Elder Abuse Suspicion Index (EASI ). Journal of Elder Abuse and Neglect, 2008; 20 (3): 276-300.
[2019-03-30] MEDS ORDERED: PANTOPRAZOLE SODIUM IV 40 MG VIAL IVP SCH (19:30)
== END 2019-03-30 12:30 | disposition home or self-care (01) ==
LOC: ER 15:14 → MEDSURG 19:56
PROVIDERS: ADMIT Internal Medicine; ATTEND Internal Medicine
DX: R07.9 Chest pain, unspecified (principal); R11.2 Nausea with vomiting, unspecified; R42 Dizziness and giddiness; Z90.49 Acquired absence of other specified parts of digestive tract
CPT/HCPCS: 71046; 80053; 82550; 82553; 83690; 83735; 84484; 85027; 85379; 93005; 93010; 96365; 96366; 96374; 96375; 99220; 99285; C9113; J2405; J2550